=== PATIENT | female | born 1960 | race Caucasian/White ===

== ENCOUNTER 2017-01-14 06:13 | Emergency (ER) | payer BC ==
[~2017-01-14] VITALS: Ht 160 cm; Wt 61.2 kg
[~2017-01-14 06:13] MED LIST: AMOXIL500 MG PO; ATIVAN0.5 MG PO; CIPROFLOXACIN500 MG PO; CLARITIN REDITA10 MG PO; FEOSOL45 MG PO; FLAGYL500 MG PO; GAS RELIEF80 MG PO; IBUPROFEN 30 M800 MG PO; IRON TABLETS325 MG PO; LO/OVRAL-28 301 TA1 PO; Percocet 325 MG1 TAB PO; ROBITUSSIN-AC 160 ML PO; TRAMADOL HCL50 MG PO; TRIMOX500 MG PO
[2017-01-14] MEDS ORDERED: ZITHROMAX250 MG PO (06:46)
== END 2017-01-14 07:04 | disposition home or self-care (01) ==
LOC: ED 06:13
DX: J02.9 Acute pharyngitis, unspecified (principal); H92.03 Otalgia, bilateral; R05 Cough; Z88.2 Allergy status to sulfonamides; Z91.013 Allergy to seafood; Z91.048 Other nonmedicinal substance allergy status; Z79.899 Other long term (current) drug therapy

== ENCOUNTER → 2017-07-27 | Outpatient (CLI) | payer BC ==
[~2017-07-27] MED LIST changes: +ZITHROMAX250 MG PO
[2017-07-27 07:46] LABS: HEMATOCRIT 40.9 % (37.0-47.0); HEMOGLOBIN 14.3 g/dl (12.0-16.0); MEAN CELL VOLUME 88.7 fl (81.0-99.0); MEAN PLATELET VOLUME 9.1 fl (9.6-12.3); RED BLOOD COUNT 4.61 10*6/uL (4.10-5.10); RED CELL DISTRI WIDTH 12.3 % (0-14.5); WHITE BLOOD COUNT 3.9 10*3/uL (4.8-10.8)
[2017-07-27 08:22] LABS: ALBUMIN 3.9 gm/dl (3.1-4.5); ALKALINE PHOSPHATASE 72 U/L (45-117); BUN 12 mg/dl (7-24); CHLORIDE 107 mmol/L (98-107); CHOLESTEROL 193 mg/dL (<200); CREATININE 0.96 mg/dL (0.55-1.02); HDL CHOLESTEROL 80 mg/dl (40-60); LDL CHOLESTEROL 101 mg/dL (9-159); SGOT/AST 27 IU/L (3-35); SGPT/ALT 35 U/L (12-78); SODIUM 140 mmol/L (136-145); TOTAL PROTEIN 7.8 gm/dL (6.4-8.2); TRIGLYCERIDES 62 mg/dl (<150); VLDL CHOLESTEROL 12 mg/dL (6-40)
== END | disposition home or self-care (01) ==
LOC: LAB 07:07
PROVIDERS: Family Medicine
DX: D72.819 Decreased white blood cell count, unspecified (principal); R53.83 Other fatigue; R21 Rash and other nonspecific skin eruption

== ENCOUNTER → 2019-03-08 | Outpatient (CLI) | payer BC ==
[2019-03-08 07:42] LABS: HEMATOCRIT 42.5 % (37.0-47.0); HEMOGLOBIN 14.5 g/dl (12.0-16.0); MEAN CELL VOLUME 90.4 fl (81.0-99.0); MEAN CORPUSCULAR HGB 30.9 pg (27.0-31.0); MEAN CORPUSCULAR HGB CONC 34.1 g/dl (33.0-37.0); MEAN PLATELET VOLUME 8.8 fl (9.6-12.3); RED BLOOD COUNT 4.7 10*6/uL (4.10-5.10); RED CELL DISTRI WIDTH 11.7 % (0-14.5); WHITE BLOOD COUNT 4.9 10*3/uL (4.8-10.8)
[2019-03-08 07:59] LABS: ALBUMIN 3.9 gm/dl (3.1-4.5); ALKALINE PHOSPHATASE 70 U/L (45-117); BUN 10 mg/dl (7-24); CHLORIDE 108 mmol/L (98-107); CHOLESTEROL 212 mg/dL (<200); CREATININE 0.85 mg/dL (0.55-1.02); HDL CHOLESTEROL 70 mg/dl (40-60); LDL CHOLESTEROL 125 mg/dL (9-159); POTASSIUM 3.7 mmol/L (3.5-5.1); SGOT/AST 16 IU/L (3-35); SGPT/ALT 29 U/L (12-78); SODIUM 141 mmol/L (136-145); TOTAL PROTEIN 7.9 gm/dL (6.4-8.2); TRIGLYCERIDES 85 mg/dl (<150); VLDL CHOLESTEROL 17 mg/dL (6-40)
== END | disposition home or self-care (01) ==
LOC: LAB 07:17
PROVIDERS: Family Medicine
DX: E78.00 Pure hypercholesterolemia, unspecified (principal); E55.9 Vitamin D deficiency, unspecified; R53.83 Other fatigue

== ENCOUNTER → 2020-01-21 | Outpatient (CLI) | payer OTHER ==
[2020-01-21 09:23] LABS: MEAN CELL VOLUME 90.7 fl (81.0-99.0); MEAN CORPUSCULAR HGB 30.8 pg (27.0-31.0); MEAN CORPUSCULAR HGB CONC 33.9 g/dl (33.0-37.0); MEAN PLATELET VOLUME 9.3 fl (9.6-12.3); RED BLOOD COUNT 4.52 10*6/uL (4.10-5.10); RED CELL DISTRI WIDTH 12.3 % (0-14.5)
[2020-01-21 09:56] LABS: ALBUMIN 4.3 gm/dl (3.1-4.5); ALKALINE PHOSPHATASE 62 U/L (45-117); BUN 9 mg/dl (7-24); CHLORIDE 108 mmol/L (98-107); CHOLESTEROL 230 mg/dL (<200); CREATININE 0.89 mg/dL (0.55-1.02); HDL CHOLESTEROL 80 mg/dl (40-60); LDL CHOLESTEROL 132 mg/dL (9-159); POTASSIUM 3.9 mmol/L (3.5-5.1); SGOT/AST 21 IU/L (3-35); SGPT/ALT 29 U/L (12-78); SODIUM 139 mmol/L (136-145); TOTAL PROTEIN 7.9 gm/dL (6.4-8.2); TRIGLYCERIDES 92 mg/dl (<150); VLDL CHOLESTEROL 18 mg/dL (6-40)
== END | disposition home or self-care (01) ==
LOC: LAB 08:52
PROVIDERS: ATTEND Family Medicine
DX: Z13.220 Encounter for screening for lipoid disorders (principal); E55.9 Vitamin D deficiency, unspecified; D72.819 Decreased white blood cell count, unspecified

== ENCOUNTER → 2020-03-09 | Outpatient (CLI) | payer OTHER | END | disposition home or self-care (01) | LOC: MAMMO 09:13 | PROVIDERS: ATTEND Family Medicine | DX: Z12.31 Encounter for screening mammogram for malignant neoplasm of breast (principal) ==

== ENCOUNTER → 2025-01-29 | Outpatient (CLI) | payer MEDICARE ==
[2025-01-29 08:43] LABS: MEAN CELL VOLUME 90.8 fl (81.0-99.0); MEAN CORPUSCULAR HGB 30.8 pg (27.0-31.0); MEAN PLATELET VOLUME 8.7 fl (9.6-12.3); NUCLEATED RED BLOOD CELL 0.0 % (0.0-0.0); NUCLEATED RED BLOOD CELL 0.0 10*3/uL (0.0-0.0); PLATELET COUNT AUTOMATED 268.0 10*3/uL (130-400); RED CELL DISTRI WIDTH 12.2 % (0-14.5)
[2025-01-29 09:17] LABS: BUN 9 mg/dl (9-23); LDL CHOLESTEROL 122 mg/dL (9-159); SGPT/ALT 22 U/L (5-49)
[2025-01-29 09:20] LABS: VITAMIN D, 25-HYDROXY 59.7 ng/mL (30-100)
== END ==
LOC: LAB 08:23
PROVIDERS: ATTEND Family Medicine
DX: E78.00 Pure hypercholesterolemia, unspecified (principal); E55.9 Vitamin D deficiency, unspecified; R53.83 Other fatigue; H25.813 Combined forms of age-related cataract, bilateral; Z00.00 Encounter for general adult medical examination without abnormal findings